=== PATIENT | female | born 1970 | race Caucasian/White ===

== ENCOUNTER 2016-09-22 20:33 | Emergency (ER) | payer BC ==
[~2016-09-22] VITALS: Ht 162.6 cm; Wt 72.5 kg
[2016-09-22] MEDS ORDERED: SODIUM CHLORIDE 0.9% 1,000ML IVBOLUS ONE (22:00)
[2016-09-22] MEDS ORDERED: HYDROmorphone 1 MG/ML, 1ML ONE ×2 (22:04→23:14)
[2016-09-22] MEDS ORDERED: methylPREDNISolone SOD SUCC 125 MG/2 ML ONE ×2 (22:04→23:14)
[2016-09-22] MEDS ORDERED: LORazepam 2 MG/ML, 1ML ONE ×2 (22:05→23:15)
[2016-09-22 22:11] VITALS: BP 127/86
[2016-09-22] MEDS: LORazepam 2 MG/ML, 1ML IVPush ONE ×2 (22:15→23:23)
[2016-09-22] MEDS: HYDROmorphone 1 MG/ML, 1ML IVPush PRN ×2 (22:15→23:23)
[2016-09-22] MEDS: methylPREDNISolone SOD SUCC 125 MG/2 ML IVPush ONE ×2 (22:15→23:23)
[2016-09-22 23:01] LABS: DAU SCREEN DISCLAIMER
[2016-09-22 23:08] LABS: PATH.CAST-FLAG NOT PRESENT; SPERM-FLAG NOT PRESENT; SRC-FLAG NOT PRESENT; XTAL-FLAG NOT PRESENT; YLC-FLAG NOT PRESENT
[2016-09-22 23:27] LABS: ASPARTATE AMINO TRANSFERASE 11 U/L (15-37); BLOOD UREA NITROGEN 11 mg/dL (7-18)
[2016-09-23] MEDS ORDERED: POTASSIUM CHLORIDE 20 MEQ TAB.ER.PRT PO ONE
== END 2016-09-23 04:45 ==
LOC: ED 23:56
DX: G35 Multiple sclerosis (principal); R10.2 Pelvic and perineal pain; M25.512 Pain in left shoulder; M25.511 Pain in right shoulder; R10.84 Generalized abdominal pain; M54.5 Low back pain
CPT/HCPCS: 36415; 80053; 80307; 81001; 85025; 96361; 96374; 96375; 96376; 99284; J1170; J2060; J2930; J7030